=== PATIENT | male | born 1955 | race Caucasian/White ===

== ENCOUNTER 2018-02-18 21:35 | Emergency (ER) | payer OTHER ==
[~2018-02-18 21:35] MED LIST: AMIT-106 PO; CLI150 PO; DUL30 PO; DULO60CA7 PO; PER PO
[2018-02-18] MEDS ORDERED: ASPIRIN 81 MG CHEW CHEW ONE (21:58)
[2018-02-18 22:07] LABS: PLATELET COUNT, AUTOMATED 219 K/uL (150-450)
--- NOTE | 2018-02-18 22:19 | EKG ---
FACILITY: [facility] PATIENT NAME: DOUGLAS BOB : [id number] MR: [id number] V: [id number] EXAM DATE: ORDERING PHYSICIAN: JOCELYN MAHONEY TECHNOLOGIST: Dennis GAN Test Reason : CHEST PAIN Blood Pressure : / mmHG Vent. Rate : 066 BPM Atrial Rate : 066 BPM P-R Int : 168 ms QRS Dur : 104 ms QT Int : 420 ms P-R-T Axes : 064 -56 030 degrees QTc Int : 440 ms Normal sinus rhythm Left anterior fascicular block Possible Lateral infarct , age undetermined R wave progression consistent with old ant/sep CA vs lead placement No previous ECGs available Confirmed by WINSTON SINGH ([id number]) on 02/19/2018 7:56:01 AM Referred By: Confirmed By:WINSTON SINGH
--- NOTE | 2018-02-18 23:17 | RADIOLOGY IMAGING REPORT ---
[place] [facility] [place] Ori Farmer : 1955 MR: [id number] V: [id number] EXAM DATE: ORDERING PHYSICIAN: JOCELYN MAHONEY TECHNOLOGIST: Location: [facility] - [place] Patient: Ori Farmer : 1955 Visit/Account:[id number] Date of Sevice: 02/18/2018 TWO VIEW CHEST 02/18/2018 9:57 PM. INDICATION: Acute chest pain. COMPARISON: None. FINDINGS: Lungs are well-expanded. The lungs are clear. No pneumothorax or pleural effusion. Pulmo nary vasculature is unremarkable. Heart size is normal. IMPRESSION: No acute cardiopulmonary abnormality. Report Dictated By: Brooks García MD at 02/18/2018 11:13 PM Report E-Signed By: Brooks García MD at 02/18/2018 11:13 PM WSN:[id number]
--- NOTE | 2018-02-18 23:18 | ER Report ---
History and Physical Time Seen By MD: 10:15 Hx. of Stated Complaint: PT REPORTS INDIGESTION ALL DAY. DEVELOPED CHEST PAIN AT APPROX 1930. HAS STREP THROAT LAST WEEK. TOOK ZPACK FOR THAT. HPI/ROS CHIEF COMPLAINT: Chest pain. HISTORY OF PRESENT ILLNESS: Pt awoke today feeling normal; at work at approx 0900 he developed midepigastric burning pain that he states is typical of his GERD. This lasted throughout the day; he did not attempt to take any medications other than tums, without relief. Tonight, approx 1 hr well logging [employer] pt noted fleeing sharp left sided chest pains that lasted approx 1 min and occurred twice. At this time, he developed mild landrum, sensation of not feeling well, and noticed blood pressure was elevated. This concerned him and he thus presented to ED. He did not have focal weakness, confusion; No prior cardiac w/up, stress test, or acs in family. Denies risk factors, no recent travel, swelling in legs. Pt admits to sig amt of stress at work; is retiring in 1 week but dealing with sig stressors before then REVIEW OF SYSTEMS: Constitutional: No fever, no chills. Eyes: No discharge. ENT: No sore throat. Respiratory: As above. Cardiac: As above. Gastrointestinal: No abdominal pain, other than epigastric radiating as above; no vomiting Genitourinary: No hematuria. Musculoskeletal: No back pain. Skin: No rashes. Neurological: No headache. Remainder of the 14 system rev: Yes Allergies: Coded Allergies: amoxicillin (Verified Allergy, Mild, UNKNOWN, 02/18/18) gluten (Verified Allergy, Mild, FLU LIKE SYMPTOMS, 02/18/18) latex (Unverified Allergy, Mild, 02/18/18) yeast, dried (Verified Allergy, Mild, UNKNOWN, 02/18/18) Home Meds Reported Medications Duloxetine HCl (Duloxetine HCl) 60 Mg Capsule.dr, 60 MG PO DAILY 07/01/17 Amitriptyline Hcl (AMITRIPTYLINE HCL) 25 Mg Tablet, 25 MG PO QHS, #5 TAB 07/01/17 Past Medical/Surgical History insomnia Reviewed Nurses Notes: Yes Hx Smoking: No Smoking Status: Never Smoker Hx Substance Use Disorder: No Hx Alcohol Use: No Constitutional Vital Sign - Last 24 Hours 02/18/18 02/18/18 02/18/18 02/18/18 21:40 21:45 22:00 22:15 Temp 98.5 Pulse 66 67 74 75 Resp 16 15 16 15 B/P (MAP) 144/98 140/91 (107) Pulse Ox 92 91 90 90 O2 Delivery Room Air 02/18/18 02/18/18 02/18/18 02/18/18 22:50 23:00 23:15 23:30 Pulse 63 77 66 Resp 10 25 16 B/P (MAP) 133/88 (103) 138/94 (109) 132/82 (99) Pulse Ox 91 89 89 Physical Exam General Appearance: [The patient is alert, has no immediate need for airway protection and no signs of toxicity.] [ ] Eyes: Pupils equal and round no pallor or injection. ENT, Mouth: Mucous membranes are moist. Respiratory: There are no retractions, lungs are clear to auscultation. Cardiovascular: Regular rate and rhythm. no m/r/g, no carotid bruit Gastrointestinal: Abdomen is soft and non tender, no masses, bowel sounds normal. Neurological: alert, oriented, nad Skin: Warm and dry, no rashes. Musculoskeletal: Neck is supple non tender. Extremities are nontender, nonswollen and have full range of motion. DIFFERENTIAL DIAGNOSIS: After history and physical exam differential diagnosis was considered for chest pain including but not limited to myocardial ischemia, pericarditis pulmonary embolus, chest wall pain, pleural inflammation and pulmonary infectious causes.abdominal pain including but not limited to appendicitis, cholecystitis, gastritis and urinary tract infection. Medical Decision Making Data Points Result Diagram: 02/18/18215202/18/182152 Laboratory Hematology Test 02/18/18 21:53 02/19/18 00:59 Red Blood Count 4.95 M/uL (4.00-5.60) Mean Corpuscular Volume 90.5 fL (80.0-96.0) Mean Corpuscular Hemoglobin 32.0 pg (26.0-33.0) Mean Corpuscular Hemoglobin Concent 35.3 g/dL (32.0-36.0) Red Cell Distribution Width 13.2 % (11.5-14.5) Mean Platelet Volume 7.9 fL (7.2-11.1) Neutrophils (%) (Auto) 64.7 % (39.4-72.5) Lymphocytes (%) (Auto) 20.6 % (17.6-49.6) Monocytes (%) (Auto) 10.6 % (4.1-12.4) Eosinophils (%) (Auto) 3.4 % (0.4-6.7) Basophils (%) (Auto) 0.7 % (0.3-1.4) Nucleated RBC Relative Count (auto) 0.0 /100WBC Neutrophils # (Auto) 6.8 K/uL (2.0-7.4) Lymphocytes # (Auto) 2.2 K/uL (1.3-3.6) Monocytes # (Auto) 1.1 K/uL (0.3-1.0) Eosinophils # (Auto) 0.4 K/uL (0.0-0.5) Basophils # (Auto) 0.1 K/uL (0.0-0.1) Nucleated RBC Absolute Count (auto) 0.00 K/uL Sodium Level 137 mmol/L (137-145) Potassium Level 4.0 mmol/L (3.5-5.0) Chloride Level 100 mmol/L (98-107) Carbon Dioxide Level 27 mmol/L (22-30) Blood Urea Nitrogen 17 mg/dl (9-21) Creatinine 0.80 mg/dl (0.66-1.25) Glomerular Filtration Rate Calc > 60.0 Random Glucose 126 mg/dl (75-110) Calcium Level 9.3 mg/dl (8.4-10.2) Total Bilirubin 0.3 mg/dl (0.2-1.3) Aspartate Amino Transf (AST/SGOT) 35 U/L (0-35) Alanine Aminotransferase (ALT/SGPT) 50 U/L (0-56) Alkaline Phosphatase 90 U/L (0-126) Total Protein 7.7 g/dl (6.3-8.2) Albumin 4.6 g/dl (3.5-5.0) Troponin I < 0.012 ng/ml Chemistry Test 02/18/18 21:53 02/19/18 00:59 White Blood Count 10.6 k/uL (4.5-11.0) Red Blood Count 4.95 M/uL (4.00-5.60) Hemoglobin 15.8 g/dL (14.0-18.0) Hematocrit 44.8 % (42.0-52.0) Mean Corpuscular Volume 90.5 fL (80.0-96.0) Mean Corpuscular Hemoglobin 32.0 pg (26.0-33.0) Mean Corpuscular Hemoglobin Concent 35.3 g/dL (32.0-36.0) Red Cell Distribution Width 13.2 % (11.5-14.5) Platelet Count 219 K/uL (150-450) Mean Platelet Volume 7.9 fL (7.2-11.1) Neutrophils (%) (Auto) 64.7 % (39.4-72.5) Lymphocytes (%) (Auto) 20.6 % (17.6-49.6) Monocytes (%) (Auto) 10.6 % (4.1-12.4) Eosinophils (%) (Auto) 3.4 % (0.4-6.7) Basophils (%) (Auto) 0.7 % (0.3-1.4) Nucleated RBC Relative Count (auto) 0.0 /100WBC Neutrophils # (Auto) 6.8 K/uL (2.0-7.4) Lymphocytes # (Auto) 2.2 K/uL (1.3-3.6) Monocytes # (Auto) 1.1 K/uL (0.3-1.0) Eosinophils # (Auto) 0.4 K/uL (0.0-0.5) Basophils # (Auto) 0.1 K/uL (0.0-0.1) Nucleated RBC Absolute Count (auto) 0.00 K/uL Glomerular Filtration Rate Calc > 60.0 Calcium Level 9.3 mg/dl (8.4-10.2) Total Bilirubin 0.3 mg/dl (0.2-1.3) Aspartate Amino Transf (AST/SGOT) 35 U/L (0-35) Alanine Aminotransferase (ALT/SGPT) 50 U/L (0-56) Alkaline Phosphatase 90 U/L (0-126) Total Protein 7.7 g/dl (6.3-8.2) Albumin 4.6 g/dl (3.5-5.0) Troponin I < 0.012 ng/ml EKG/Imaging EKG Interpretation 12 lead EKG: Rhythm: normal sinus rhythm [place]: left QRS: q I, avL ST segments: T flat in III, V1 Monitor Interpretation: Normal Sinus Rhythm Imaging X-ray: chest was obtained. I viewed the images myself on the PACS system. My interpretation of the images is: NACPD. The radiologist interpretation had no clinically significant variation from this interpretation. ED Course/Re-evaluation ED Course Pt remains asymptomatic, calm, in ED. Trop/ekg x 2 unremarkable for actute findings; do note small q in 1, avl, though no e/o recent myocardial ischemia. I discussed at length with pt; will f/ u with his pcm to schedule prompt stress test. Given epigastric burning will initiate zantac. Will d/c wtih SRP's as we considered above differential, and low posttest prob in ED. Re-evaluation Pt pain free, comfortable, calm, asymptomatic Decision to Disposition Date: Feb 19, 2018 Decision to Disposition Time: 01:46 Depart Departure Latest Vital Signs Vital Signs Date Time Temp Pulse Resp B/P (MAP) Pulse Ox O2 Delivery O2 Flow Rate FiO2 02/18/18 23:30 66 16 132/82 (99) 89 02/18/18 21:40 98.5 Room Air Impression: Primary Impression: Chest pain Additional Impression: Epigastric pain Condition: Improved Disposition: HOME OR SELF-CARE Referrals: SHANEKA MCLAUGHLIN MD (PCP) New Scripts Ranitidine Hcl (ZANTAC) 150 Mg Tablet 150 MG PO BID for 14 Days, #28 TAB Prov: JOCELYN MAHONEY MD 02/19/18 Patient Instructions: Chest Pain (ED) Additional Instructions: As we discussed, call your primary doctor tomorrow to schedule cardiac stress test. Take zantac for at least 2 weeks; follow up with your doctor for further recommendations on continuing Please return immediately for any concerns. Problem Qualifiers Primary Impression: Chest pain Chest pain type: unspecified Qualified Codes: R07.9 - Chest pain, unspecified JOCELYN MAHONEY MD Feb 18, 2018 23:17
--- NOTE | 2018-02-19 00:45 | EKG ---
FAC[place]: [facility] [place]IENT NAME: DOUGLAS BOB : [id number] MR: [id number] V: [id number] EXAM DATE: ORDERING PHYSICIAN: JOCELYN MAHONEY TECHNOLOGIST: JOSHUA Test Reason : REPEAT EKG Blood Pressure : / mmHG Vent. Rate : 070 BPM Atrial Rate : 070 BPM P-R Int : 166 ms QRS Dur : 110 ms QT Int : 412 ms P-R-T Axes : 047 -55 021 degrees QTc Int : 444 ms Normal sinus rhythm Left anterior fascicular block Possible Lateral infarct (cited on or before 18-FEB-2018) R wave progression consistent with old ant/sep [place] vs lead placement When compared with ECG of 18-FEB-2018 21:50, No significant change was found Confirmed by WINSTON SINGH ([id number]) on 02/19/2018 7:57:57 AM Referred By: Confirmed By:WINSTON SINGH
[2018-02-19 01:00] VITALS: BP 132/86
[2018-02-19] MEDS ORDERED: RANI-366 PO (01:48)
== END 2018-02-19 02:00 | disposition home or self-care (01) ==
LOC: ER 21:55
DX: R07.89 Other chest pain (principal); R10.13 Epigastric pain; G47.00 Insomnia, unspecified
CPT/HCPCS: 71046; 82040; 82247; 82310; 82374; 82435; 82565; 82947; 84075; 84132; 84155; 84295; 84443; 84450; 84460; 84484; 84520; 85025; 93005; 99284

== ENCOUNTER 2018-03-14 03:39 | Emergency (ER) | payer OTHER ==
[~2018-03-14 03:39] MED LIST changes: +RANI-366 PO
[2018-03-14] MEDS ORDERED: NS(*) 0.9% 1000 ML BAG 1,000 ML IV ONE (03:48)
--- NOTE | 2018-03-14 03:48 | ER Report ---
History and Physical Time Seen By MD: 03:42 HPI/ROS CHIEF COMPLAINT: Vomiting, epigastric pain HISTORY OF PRESENT ILLNESS: 62-year-old male presents ambulatory to the ER complaining of vomiting for 4 hours. He's been having dry heaves. He ate at [employer] last evening. Patient reports no diarrhea. Patient denies recent travel or exposure to ill contacts. Patient denies recent antibiotics. Patient notes primarily epigastric pain without radiation. He notes severe cramps when he vomits. His distant history is significant for a hernia repair in the 80s. Patient notes no dysuria or hematuria. REVIEW OF SYSTEMS: Respiratory: No cough, no dyspnea. Cardiovascular: No chest pain, no palpitations. Gastrointestinal: As above Musculoskeletal: No back pain. Allergies: Coded Allergies: amoxicillin (Verified Allergy, Mild, UNKNOWN, 03/14/18) gluten (Verified Allergy, Mild, FLU LIKE SYMPTOMS, 03/14/18) latex (Unverified Allergy, Mild, 03/14/18) yeast, dried (Verified Allergy, Mild, UNKNOWN, 03/14/18) Home Meds Active Scripts Ondansetron Hcl (ZOFRAN) 4 Mg Tablet, 4 MG PO Q6H PRN for NAUSEA/VOMITING, #12 Prov:THOMAS BUSH DO 03/14/18 Reported Medications Duloxetine HCl (Duloxetine HCl) 60 Mg Capsule.dr, 60 MG PO DAILY 07/01/17 Amitriptyline Hcl (AMITRIPTYLINE HCL) 25 Mg Tablet, 25 MG PO QHS, #5 TAB 07/01/17 Discontinued Scripts Ranitidine Hcl (ZANTAC) 150 Mg Tablet, 150 MG PO BID for 14 Days, #28 TAB Prov:JOCELYN MAHONEY MD 02/19/18 Reviewed Nurses Notes: Yes Old Medical Records Reviewed: Yes Hx Smoking: No Smoking Status: Never Smoker Hx Substance Use Disorder: No Hx Alcohol Use: No Constitutional Vital Sign - Last 24 Hours 03/14/18 03/14/18 03/14/18 03/14/18 03:43 03:44 04:09 04:18 Temp 97.9 Pulse 47 77 Resp 18 B/P (MAP) 143/92 143/92 (109) 133/80 (97) Pulse Ox 93 87 O2 Delivery Room Air 03/14/18 03/14/18 03/14/18 03/14/18 04:18 04:24 04:30 04:39 Pulse 76 ??? B/P (MAP) 120/97 (105) Pulse Ox 97 96 O2 Flow Rate 2.0 03/14/18 03/14/18 03/14/18 03/14/18 04:44 04:55 04:55 04:59 Pulse 82 61 59 Resp 14 Pulse Ox 88 94 99 O2 Delivery Nasal Cannula O2 Flow Rate 2.0 03/14/18 03/14/18 03/14/18 05:00 05:03 05:29 Pulse 60 85 Resp 16 16 B/P (MAP) 130/81 (97) 142/82 (102) Pulse Ox 95 O2 Delivery Room Air Intake and Output 03/13/18 03/13/18 03/14/18 14:59 22:59 06:59 Intake Total 1000 ml Balance 1000 ml Physical Exam General Appearance: The patient is alert, has no immediate need for airway protection and no current signs of toxicity. Vital signs stable, afebrile, pulse ox normal HEENT: Pupils equal and round no injection. Pharynx without redness or exudate, mucous. Membranes are moist Respiratory: Chest is non tender, lungs are clear to auscultation. Cardiac: regular rate and rhythm Gastrointestinal: Abdomen is soft, mild epigastric tenderness, no masses, bowel sounds normal. Musculoskeletal: Neck: Neck is supple and non tender. No lymphadenopathy Extremities have full range of motion and are non tender. Skin: No rashes or lesions. DIFFERENTIAL DIAGNOSIS: After history and physical exam differential diagnosis was considered for abdominal pain including but not limited to appendicitis, cholecystitis, gastritis, gastroenteritis, food poisoning, viral syndrome and urinary tract infection. Medical Decision Making Data Points Result Diagram: 03/14/18 0358 03/14/18 0358 Laboratory Hematology Test 03/14/18 03:58 03/14/18 04:43 Red Blood Count 4.63 M/uL (4.00-5.60) Mean Corpuscular Volume 93.2 fL (80.0-96.0) Mean Corpuscular Hemoglobin 32.1 pg (26.0-33.0) Mean Corpuscular Hemoglobin Concent 34.4 g/dL (32.0-36.0) Red Cell Distribution Width 13.0 % (11.5-14.5) Mean Platelet Volume 8.4 fL (7.2-11.1) Neutrophils (%) (Auto) 82.3 % (39.4-72.5) Lymphocytes (%) (Auto) 9.9 % (17.6-49.6) Monocytes (%) (Auto) 6.2 % (4.1-12.4) Eosinophils (%) (Auto) 1.0 % (0.4-6.7) Basophils (%) (Auto) 0.6 % (0.3-1.4) Nucleated RBC Relative Count (auto) 0.0 /100WBC Neutrophils # (Auto) 7.1 K/uL (2.0-7.4) Lymphocytes # (Auto) 0.9 K/uL (1.3-3.6) Monocytes # (Auto) 0.5 K/uL (0.3-1.0) Eosinophils # (Auto) 0.1 K/uL (0.0-0.5) Basophils # (Auto) 0.1 K/uL (0.0-0.1) Nucleated RBC Absolute Count (auto) 0.00 K/uL Sodium Level 138 mmol/L (137-145) Potassium Level 3.9 mmol/L (3.5-5.0) Chloride Level 103 mmol/L (98-107) Carbon Dioxide Level 25 mmol/L (22-30) Blood Urea Nitrogen 20 mg/dl (9-21) Creatinine 0.80 mg/dl (0.66-1.25) Glomerular Filtration Rate Calc > 60.0 Random Glucose 146 mg/dl (75-110) Calcium Level 8.7 mg/dl (8.4-10.2) Total Bilirubin 0.3 mg/dl (0.2-1.3) Aspartate Amino Transf (AST/SGOT) 25 U/L (0-35) Alanine Aminotransferase (ALT/SGPT) 36 U/L (0-56) Alkaline Phosphatase 70 U/L (0-126) Troponin I < 0.012 ng/ml Total Protein 6.8 g/dl (6.3-8.2) Albumin 4.1 g/dl (3.5-5.0) Amylase Level 47 U/L (0-110) Lipase 111 U/L (23-300) Urine Color Yellow Urine Clarity Clear Urine pH 5.0 pH (4.8-9.5) Urine Specific [place] 1.018 Urine Protein Negative mg/dL (NEGATIVE) Urine Glucose (UA) Negative mg/dL (NEGATIVE) Urine Ketones Negative mg/dL (NEGATIVE) Urine Blood Negative (NEGATIVE) Urine Nitrite Negative (NEGATIVE) Urine Bilirubin Negative (NEGATIVE) Urine Urobilinogen Negative mg/dL (0.2-1.9) Urine Leukocyte Esterase Negative (NEGATIVE) Urine RBC None /HPF (0-2/HPF) Urine WBC 1 /HPF (0-5/HPF) Urine Squamous Epithelial Cells None /LPF (</=FEW) Urine Transitional Epithelial Cells Few /LPF (NONE-FEW) Urine Bacteria Negative /HPF (NONE-FEW) Urine Mucus Few /HPF (NONE-FEW) Chemistry Test 03/14/18 03:58 03/14/18 04:43 White Blood Count 8.6 k/uL (4.5-11.0) Red Blood Count 4.63 M/uL (4.00-5.60) Hemoglobin 14.8 g/dL (14.0-18.0) Hematocrit 43.1 % (42.0-52.0) Mean Corpuscular Volume 93.2 fL (80.0-96.0) Mean Corpuscular Hemoglobin 32.1 pg (26.0-33.0) Mean Corpuscular Hemoglobin Concent 34.4 g/dL (32.0-36.0) Red Cell Distribution Width 13.0 % (11.5-14.5) Platelet Count 174 K/uL (150-450) Mean Platelet Volume 8.4 fL (7.2-11.1) Neutrophils (%) (Auto) 82.3 % (39.4-72.5) Lymphocytes (%) (Auto) 9.9 % (17.6-49.6) Monocytes (%) (Auto) 6.2 % (4.1-12.4) Eosinophils (%) (Auto) 1.0 % (0.4-6.7) Basophils (%) (Auto) 0.6 % (0.3-1.4) Nucleated RBC Relative Count (auto) 0.0 /100WBC Neutrophils # (Auto) 7.1 K/uL (2.0-7.4) Lymphocytes # (Auto) 0.9 K/uL (1.3-3.6) Monocytes # (Auto) 0.5 K/uL (0.3-1.0) Eosinophils # (Auto) 0.1 K/uL (0.0-0.5) Basophils # (Auto) 0.1 K/uL (0.0-0.1) Nucleated RBC Absolute Count (auto) 0.00 K/uL Glomerular Filtration Rate Calc > 60.0 Calcium Level 8.7 mg/dl (8.4-10.2) Total Bilirubin 0.3 mg/dl (0.2-1.3) Aspartate Amino Transf (AST/SGOT) 25 U/L (0-35) Alanine Aminotransferase (ALT/SGPT) 36 U/L (0-56) Alkaline Phosphatase 70 U/L (0-126) Troponin I < 0.012 ng/ml Total Protein 6.8 g/dl (6.3-8.2) Albumin 4.1 g/dl (3.5-5.0) Amylase Level 47 U/L (0-110) Lipase 111 U/L (23-300) Urine Color Yellow Urine Clarity Clear Urine pH 5.0 pH (4.8-9.5) Urine Specific [place] 1.018 Urine Protein Negative mg/dL (NEGATIVE) Urine Glucose (UA) Negative mg/dL (NEGATIVE) Urine Ketones Negative mg/dL (NEGATIVE) Urine Blood Negative (NEGATIVE) Urine Nitrite Negative (NEGATIVE) Urine Bilirubin Negative (NEGATIVE) Urine Urobilinogen Negative mg/dL (0.2-1.9) Urine Leukocyte Esterase Negative (NEGATIVE) Urine RBC None /HPF (0-2/HPF) Urine WBC 1 /HPF (0-5/HPF) Urine Squamous Epithelial Cells None /LPF (</=FEW) Urine Transitional Epithelial Cells Few /LPF (NONE-FEW) Urine Bacteria Negative /HPF (NONE-FEW) Urine Mucus Few /HPF (NONE-FEW) Urinalysis Test 03/14/18 04:43 Urine Color Yellow Urine Clarity Clear Urine pH 5.0 pH (4.8-9.5) Urine Specific [place] 1.018 Urine Protein Negative mg/dL (NEGATIVE) Urine Glucose (UA) Negative mg/dL (NEGATIVE) Urine Ketones Negative mg/dL (NEGATIVE) Urine Blood Negative (NEGATIVE) Urine Nitrite Negative (NEGATIVE) Urine Bilirubin Negative (NEGATIVE) Urine Urobilinogen Negative mg/dL (0.2-1.9) Urine Leukocyte Esterase Negative (NEGATIVE) Urine RBC None /HPF (0-2/HPF) Urine WBC 1 /HPF (0-5/HPF) Urine Squamous Epithelial Cells None /LPF (</=FEW) Urine Transitional Epithelial Cells Few /LPF (NONE-FEW) Urine Bacteria Negative /HPF (NONE-FEW) Urine Mucus Few /HPF (NONE-FEW) EKG/Imaging EKG Interpretation 12 lead EK Rhythm: Sinus bradycardia, rate 49 bpm [place]: normal QRS: normal ST segments: normal, comparison to previous EKG dated 02/18/18 and no significant morphologic change ED Course/Re-evaluation Clinical Indication for ER IV: Hydration, IV Access ED Course Patient was admitted to an examination room. H&P was done. The differential diagnoses was considered. Patient with vomiting after eating at [employer]. I suspect food poisoning. Patient's been having dry heaves for the last 4 hours. Patient is treated with IV Zofran and Phenergan. He also received Toradol. He is much improved. His diagnostic studies returned unremarkable. He is given an oral challenge with improvement. He does develop some severe coughing spasms, likely from reflux and mild aspiration. He is given an albuterol nebulizer treatment. He proves his breathing and coughing. Patient's discharged home on Zofran and clear liquid diet for 24 hours. Patient advised to follow-up with primary care if unimproved in 3-5 days. Decision to Disposition Date: Mar 14, 2018 Decision to Disposition Time: 04:06 Depart Departure Latest Vital Signs Vital Signs Date Time Temp Pulse Resp B/P (MAP) Pulse Ox O2 Delivery O2 Flow Rate FiO2 03/14/18 05:29 85 16 142/82 (102) 95 Room Air 03/14/18 04:55 2.0 03/14/18 03:43 97.9 Impression: Primary Impression: Abdominal pain Additional Impression: Vomiting Condition: Improved Disposition: HOME OR SELF-CARE Referrals: SHANEKA MCLAUGHLIN MD (PCP) New Scripts Ondansetron Hcl (ZOFRAN) 4 Mg Tablet 4 MG PO Q6H PRN for NAUSEA/VOMITING, #12 Prov: CASSIDY BUSHKobe Zamorano DO 03/14/18 Patient Instructions: Abdominal Pain (ED), Clear Liquid Diet (ED) Additional Instructions: Follow clear liquid diet for 24-48 hours, then advance to the brat diet, bananas , rice, applesauce, toast Use Zofran to control your vomiting Follow-up with your primary care if unimproved in 3-5 days Problem Qualifiers Primary Impression: Abdominal pain Abdominal location: epigastric Qualified Codes: R10.13 - Epigastric pain Additional Impression: Vomiting Vomiting type: unspecified Vomiting Intractability: unspecified Nausea presence: with nausea Qualified Codes: R11.2 - Nausea with vomiting, unspecified THOMAS BUSH DO Mar 14, 2018 03:48
[2018-03-14] MEDS ORDERED: PROMETHAZINE 25 MG/ML 1 ML AMP IVP ONE (03:50)
[2018-03-14] MEDS ORDERED: KETOROLAC 30 MG/ML VIAL IVP ONE (03:50)
[2018-03-14] MEDS ORDERED: ONDANSETRON 4 MG/2 ML VIAL IVP ONE (03:50)
--- NOTE | 2018-03-14 04:01 | EKG ---
FACILITY: [facility] - [place] PATIENT NAME: DOUGLAS BOB : [id number] MR: [id number] V: [id number] EXAM DATE: ORDERING PHYSICIAN: THOMAS BUSH TECHNOLOGIST: PER [place] Reason : Blood Pressure : / mmHG Vent. Rate : 049 BPM Atrial Rate : 049 BPM P-R Int : 168 ms QRS Dur : 124 ms QT Int : 496 ms P-R-T Axes : 063 -43 -15 degrees QTc Int : 448 ms Sinus bradycardia Left axis deviation Nonspecific interventricular conduction delay Nonspecific ST-T findings Abnormal ECG Confirmed by RAFAEL CONWAY ([id number]) on 03/14/2018 6:10:26 AM Referred By: Confirmed By:RAFAEL CONWAY
[2018-03-14 04:16] LABS: PLATELET COUNT, AUTOMATED 174 K/uL (150-450)
[2018-03-14] MEDS ORDERED: ONDA4TAB97 PO (04:44)
[2018-03-14] MEDS ORDERED: ALBUTEROL 2.5 MG/3 ML NEB NEB ONE (04:50)
[2018-03-14] MEDS ORDERED: ONDANSETRON 4 MG ODT TH SL ONE (05:00)
[2018-03-14 05:29] VITALS: BP 142/82
== END 2018-03-14 05:33 | disposition home or self-care (01) ==
LOC: ER 03:54
DX: R10.13 Epigastric pain (principal); R11.2 Nausea with vomiting, unspecified
CPT/HCPCS: 81001; 82150; 83690; 84484; 85025; 93005; 94640; 96361; 96374; 96375; 99284; J1885; J2405; J2550; J7030; J7613; S0119; 82040; 82247; 82310; 82374; 82435; 82565; 82947; 84075; 84132; 84155; 84295; 84450; 84460; 84520